=== PATIENT | female | born 1935 | race African-American/Black ===

== ENCOUNTER 2022-10-06 21:54 | Inpatient (IN) | payer OTHER ==
[2022-10-06] MEDS ORDERED: ALBUTEROL SO4 2.5/IPRATROPIUM 0.5 INH SOL 3 ML VIAL.NEB. NEB ONE (22:23)
[2022-10-06] MEDS ORDERED: methylPREDNISolone NA SUCC 125 MG/2 ML VIAL IVPB ONE (22:39)
[2022-10-06] MEDS ORDERED: methylPREDNISolone NA SUCC 125 MG/2 ML VIAL ONE (23:05)
[2022-10-06 23:17] LABS: EOS % 0.6 % (0-4.5); HEMATOCRIT 30.2 % (32.4-45.2); HEMOGLOBIN 9.1 GM/dL (10.7-15.3); LYMPH % 9.2 % (8-40); MCHC 30.1 g/dl (32.0-36.0); MEAN CELL VOLUME 64.8 fl (80-96); MEAN PLT VOLUME 8.7 fl (7.5-11.1); MONO % 9.3 % (3.8-10.2); NEUT % 80.9 % (42.8-82.8); PLATELET COUNT 359 10^3/uL (134-434); RBC 4.65 M/mm3 (3.60-5.2); RDW 21.5 % (11.6-15.6); WHITE BLOOD COUNT 4.5 K/mm3 (4.0-10.0)
[2022-10-06 23:19] LABS: MCH 19.5 pg (25.7-33.7)
[2022-10-06 23:25] LABS: INR 1.57 (0.83-1.09); PROTHROMBIN TIME (PATIENT) 18.1 SEC (9.7-13.0)
[2022-10-06 23:28] LABS: ACTIVATED PTT 38.1 SECONDS (25.2-36.5)
[2022-10-06 23:32] LABS: MAGNESIUM 2.2 mg/dL (1.8-2.4)
[2022-10-06 23:40] LABS: N-TERMINAL BNP 6872.5 pg/ml (5-450)
[2022-10-06 23:41] LABS: LACTIC ACID 3.4 mmol/L (0.4-2.0)
[2022-10-06 23:42] LABS: ANISOCYTOSIS 3+; MACROCYTOSIS 0; OVALOCYTE 1+; TARGET CELLS 1+
[2022-10-07] MEDS ORDERED: FUROSEMIDE 40 MG/4 ML INJECTABLE VIAL IVPUSH ONE
[2022-10-07] MEDS ORDERED: FUROSEMIDE 40 MG/4 ML INJECTABLE VIAL ONE (00:20)
[2022-10-07 01:01] LABS: POTASSIUM 4.2 mmol/L (3.5-5.1)
[2022-10-07 01:03] LABS: CALCIUM 8.7 mg/dL (8.5-10.1)
[2022-10-07 01:04] LABS: ALBUMIN 2.9 g/dl (3.4-5.0); BLOOD UREA NITROGEN 41.8 mg/dL (7-18)
[2022-10-07 01:08] LABS: TOT PROT 7.4 g/dl (6.4-8.2)
[2022-10-07 01:09] LABS: BILIRUBIN,TOTAL 1.4 mg/dL (0.2-1)
[2022-10-07] MEDS: FUROSEMIDE 40 MG/4 ML INJECTABLE VIAL IVPUSH SCH ×2 (05:53→13:24)
[2022-10-07] MEDS ORDERED: HEPARIN NA (PORCINE) 5,000 UNITS/ML 1ML VIAL SQ SCH ×2 (06:45→10:00)
[2022-10-07 09:12] LABS: HEMATOCRIT 31.5 % (32.4-45.2); HEMOGLOBIN 9.4 GM/dL (10.7-15.3); MCHC 29.8 g/dl (32.0-36.0); MEAN CELL VOLUME 64.1 fl (80-96); PLATELET COUNT 322 10^3/uL (134-434); RBC 4.92 M/mm3 (3.60-5.2); RDW 21.5 % (11.6-15.6)
[2022-10-07 09:17] LABS: MCH 19.1 pg (25.7-33.7); WHITE BLOOD COUNT 3.2 K/mm3 (4.0-10.0)
[2022-10-07 09:41] LABS: POTASSIUM 4.7 mmol/L (3.5-5.1)
[2022-10-07 09:43] LABS: ALBUMIN 3.2 g/dl (3.4-5.0); BLOOD UREA NITROGEN 43.2 mg/dL (7-18); CALCIUM 9.1 mg/dL (8.5-10.1); MAGNESIUM 2.2 mg/dL (1.8-2.4)
[2022-10-07 09:45] LABS: CREATININE 1.9 mg/dL (0.55-1.3)
[2022-10-07 09:46] LABS: BILIRUBIN,TOTAL 1.5 mg/dL (0.2-1); PHOSPHOROUS 5.1 mg/dL (2.5-4.9)
[2022-10-07] MEDS: APIXABAN 2.5 MG TABLET PO SCH (21:25)
[2022-10-07 22:59] LABS: ARTERIAL BLD GAS O2 SATURATION 89.8 % (95-98); ARTERIAL BLOOD GAS BASE EXCESS 0.4 mmol/L (-2-2); ARTERIAL BLOOD GAS PO2 56.7 mmHg (80-100); ARTERIAL BLOOD GAS pH 7.408 (7.350-7.450)
[2022-10-07 23:00] LABS: ALLENS TEST POSITIVE
[2022-10-08] MEDS: FUROSEMIDE 40 MG/4 ML INJECTABLE VIAL IVPUSH SCH ×2 (06:26→13:58)
[2022-10-08 07:46] LABS: HEMOGLOBIN 8.7 GM/dL (10.7-15.3); MEAN CELL VOLUME 64.1 fl (80-96); MEAN PLT VOLUME 8.6 fl (7.5-11.1); PLATELET COUNT 330 10^3/uL (134-434); RBC 4.52 M/mm3 (3.60-5.2); RDW 21.2 % (11.6-15.6)
[2022-10-08 07:52] LABS: MCH 19.2 pg (25.7-33.7)
[2022-10-08 08:22] LABS: ALBUMIN 2.8 g/dl (3.4-5.0); BLOOD UREA NITROGEN 54.1 mg/dL (7-18); MAGNESIUM 2.3 mg/dL (1.8-2.4)
[2022-10-08 08:25] LABS: PHOSPHOROUS 3.8 mg/dL (2.5-4.9)
[2022-10-08 08:27] LABS: BILIRUBIN,TOTAL 1.1 mg/dL (0.2-1); TOT PROT 7.2 g/dl (6.4-8.2)
[2022-10-08] MEDS: APIXABAN 2.5 MG TABLET PO SCH ×2 (09:35→21:44)
[2022-10-08] MEDS ORDERED: ALBUTEROL SO4 0.083% IH SOL 2.5 MG/3 ML VIAL.NEB. NEB PRN (12:31)
[2022-10-08] MEDS: BUDESONIDE/FORMETEROL FUMARATE 160/4.5 mcg INHALER IH SCH ×2 (13:54→21:45)
[2022-10-08] MEDS: ALBUTEROL SO4 2.5/IPRATROPIUM 0.5 INH SOL 3 ML VIAL.NEB. NEB SCH ×3 (14:45→20:05)
[2022-10-08] MEDS: methylPREDNISolone NA SUCC 40 MG/1 ML VIAL IVPUSH SCH (17:36)
[2022-10-09] MEDS: methylPREDNISolone NA SUCC 40 MG/1 ML VIAL IVPUSH SCH ×3 (02:00→21:28)
[2022-10-09] MEDS: FUROSEMIDE 40 MG/4 ML INJECTABLE VIAL IVPUSH SCH ×2 (06:08→13:21)
[2022-10-09] MEDS: ALBUTEROL SO4 2.5/IPRATROPIUM 0.5 INH SOL 3 ML VIAL.NEB. NEB SCH ×3 (07:45→20:30)
[2022-10-09 08:13] LABS: HEMATOCRIT 29.6 % (32.4-45.2); HEMOGLOBIN 8.7 GM/dL (10.7-15.3); MCHC 29.4 g/dl (32.0-36.0); MEAN CELL VOLUME 65.3 fl (80-96); MEAN PLT VOLUME 9.1 fl (7.5-11.1); PLATELET COUNT 364 10^3/uL (134-434); RBC 4.52 M/mm3 (3.60-5.2); RDW 21.3 % (11.6-15.6); WHITE BLOOD COUNT 4.3 K/mm3 (4.0-10.0)
[2022-10-09 08:15] LABS: MCH 19.2 pg (25.7-33.7)
[2022-10-09 08:31] LABS: POTASSIUM 5.1 mmol/L (3.5-5.1)
[2022-10-09 08:36] LABS: BLOOD UREA NITROGEN 56.4 mg/dL (7-18); MAGNESIUM 2.3 mg/dL (1.8-2.4)
[2022-10-09 08:38] LABS: PHOSPHOROUS 3.5 mg/dL (2.5-4.9)
[2022-10-09 08:39] LABS: CREATININE 1.7 mg/dL (0.55-1.3)
[2022-10-09 08:40] LABS: BILIRUBIN,TOTAL 1.1 mg/dL (0.2-1); TOT PROT 7.3 g/dl (6.4-8.2)
[2022-10-09] MEDS: APIXABAN 2.5 MG TABLET PO SCH ×2 (09:13→21:27)
[2022-10-09] MEDS: BUDESONIDE/FORMETEROL FUMARATE 160/4.5 mcg INHALER IH SCH ×2 (09:14→22:19)
[2022-10-09] MEDS ORDERED: metoPROLOL SUCCINATE 25 MG TAB.SR.24H (FP) PO ONE (12:31)
[2022-10-10] MEDS: FUROSEMIDE 40 MG/4 ML INJECTABLE VIAL IVPUSH SCH ×2 (05:28→14:08)
[2022-10-10] MEDS: ALBUTEROL SO4 2.5/IPRATROPIUM 0.5 INH SOL 3 ML VIAL.NEB. NEB SCH ×3 (08:28→20:39)
[2022-10-10] MEDS: BUDESONIDE/FORMETEROL FUMARATE 160/4.5 mcg INHALER IH SCH ×2 (09:31→21:35)
[2022-10-10] MEDS: APIXABAN 2.5 MG TABLET PO SCH ×2 (09:32→21:34)
[2022-10-10] MEDS: methylPREDNISolone NA SUCC 40 MG/1 ML VIAL IVPUSH SCH ×2 (09:32→21:34)
[2022-10-10] MEDS ORDERED: metoPROLOL SUCCINATE 25 MG TAB.SR.24H (FP) PO ONE (12:30)
[2022-10-11] MEDS: FUROSEMIDE 40 MG/4 ML INJECTABLE VIAL IVPUSH SCH ×2 (06:08→16:58)
[2022-10-11] MEDS: ALBUTEROL SO4 2.5/IPRATROPIUM 0.5 INH SOL 3 ML VIAL.NEB. NEB SCH ×3 (07:35→20:34)
[2022-10-11 09:03] LABS: POTASSIUM 4.7 mmol/L (3.5-5.1)
[2022-10-11 09:10] LABS: BLOOD UREA NITROGEN 57.7 mg/dL (7-18); CREATININE 1.7 mg/dL (0.55-1.3)
[2022-10-11 09:12] LABS: BILIRUBIN,TOTAL 0.9 mg/dL (0.2-1); TOT PROT 7.4 g/dl (6.4-8.2)
[2022-10-11 09:14] LABS: PHOSPHOROUS 3.2 mg/dL (2.5-4.9)
[2022-10-11 09:16] LABS: CALCIUM 9.2 mg/dL (8.5-10.1)
[2022-10-11 09:17] LABS: MAGNESIUM 2.3 mg/dL (1.8-2.4)
[2022-10-11 09:29] LABS: HEMATOCRIT 31.2 % (32.4-45.2); HEMOGLOBIN 9.1 GM/dL (10.7-15.3); MCHC 29.1 g/dl (32.0-36.0); MEAN CELL VOLUME 64.9 fl (80-96); PLATELET COUNT 368 10^3/uL (134-434); RDW 21.2 % (11.6-15.6); WHITE BLOOD COUNT 5.9 K/mm3 (4.0-10.0)
[2022-10-11 09:30] LABS: MCH 18.9 pg (25.7-33.7)
[2022-10-11] MEDS: methylPREDNISolone NA SUCC 40 MG/1 ML VIAL IVPUSH SCH ×2 (10:29→21:21)
[2022-10-11] MEDS: AMIODARONE HCL 200 MG TABLET PO SCH (10:29)
[2022-10-11] MEDS: APIXABAN 2.5 MG TABLET PO SCH ×2 (10:29→21:21)
[2022-10-11] MEDS: BUDESONIDE/FORMETEROL FUMARATE 160/4.5 mcg INHALER IH SCH ×2 (10:53→21:22)
[2022-10-11 11:29] LABS: ANISOCYTOSIS 1+; MACROCYTOSIS 0
[2022-10-11] MEDS ORDERED: IRON SUCROSE INJECTION 200 MG in SODIUM CHLORIDE 90 ML IVPB ONE (14:18)
[2022-10-12] MEDS: FUROSEMIDE 40 MG/4 ML INJECTABLE VIAL IVPUSH SCH ×2 (06:22→13:20)
[2022-10-12 08:12] LABS: HEMATOCRIT 30.4 % (32.4-45.2); HEMOGLOBIN 9.3 GM/dL (10.7-15.3); MCHC 30.6 g/dl (32.0-36.0); MEAN CELL VOLUME 63.3 fl (80-96); MEAN PLT VOLUME 8.4 fl (7.5-11.1); PLATELET COUNT 363 10^3/uL (134-434); RBC 4.81 M/mm3 (3.60-5.2); WHITE BLOOD COUNT 4.8 K/mm3 (4.0-10.0)
[2022-10-12 08:13] LABS: MCH 19.4 pg (25.7-33.7)
[2022-10-12] MEDS: ALBUTEROL SO4 2.5/IPRATROPIUM 0.5 INH SOL 3 ML VIAL.NEB. NEB SCH ×3 (08:22→20:48)
[2022-10-12 08:33] LABS: POTASSIUM 4.2 mmol/L (3.5-5.1)
[2022-10-12 08:37] LABS: BLOOD UREA NITROGEN 60.1 mg/dL (7-18); CALCIUM 9.2 mg/dL (8.5-10.1); MAGNESIUM 2.1 mg/dL (1.8-2.4)
[2022-10-12 08:40] LABS: PHOSPHOROUS 3.5 mg/dL (2.5-4.9)
[2022-10-12 08:41] LABS: CREATININE 1.5 mg/dL (0.55-1.3)
[2022-10-12 08:42] LABS: BILIRUBIN,TOTAL 0.9 mg/dL (0.2-1); TOT PROT 7.1 g/dl (6.4-8.2)
[2022-10-12] MEDS: PANTOPRAZOLE 40 MG TABLET PO SCH (09:43)
[2022-10-12] MEDS: methylPREDNISolone NA SUCC 40 MG/1 ML VIAL IVPUSH SCH ×2 (09:43→21:33)
[2022-10-12] MEDS: APIXABAN 2.5 MG TABLET PO SCH ×2 (09:43→21:32)
[2022-10-12] MEDS: BUDESONIDE/FORMETEROL FUMARATE 160/4.5 mcg INHALER IH SCH ×2 (09:44→21:33)
[2022-10-12] MEDS ORDERED: IRON SUCROSE INJECTION 200 MG in SODIUM CHLORIDE 90 ML IVPB ONE (10:00)
[2022-10-12] MEDS: MINERAL OIL ENEMA 133 ML ENEMA RC SCH ×2 (12:48→16:21)
[2022-10-12] MEDS: POLYETHYLENE GLYCOL (HEALTHYLAX) 3350 17 GM PACKET PO SCH ×3 (13:20→21:32)
[2022-10-13] MEDS: FUROSEMIDE 40 MG/4 ML INJECTABLE VIAL IVPUSH SCH ×2 (06:50→13:39)
[2022-10-13] MEDS: ALBUTEROL SO4 2.5/IPRATROPIUM 0.5 INH SOL 3 ML VIAL.NEB. NEB SCH ×3 (07:45→19:57)
[2022-10-13 08:16] LABS: POTASSIUM 4.3 mmol/L (3.5-5.1)
[2022-10-13 08:17] LABS: CALCIUM 9.7 mg/dL (8.5-10.1)
[2022-10-13 08:18] LABS: ALBUMIN 3.1 g/dl (3.4-5.0); BLOOD UREA NITROGEN 54.9 mg/dL (7-18); MAGNESIUM 2.3 mg/dL (1.8-2.4)
[2022-10-13 08:21] LABS: CREATININE 1.5 mg/dL (0.55-1.3); PHOSPHOROUS 3.1 mg/dL (2.5-4.9)
[2022-10-13 08:23] LABS: BILIRUBIN,TOTAL 1.1 mg/dL (0.2-1); TOT PROT 7.5 g/dl (6.4-8.2)
[2022-10-13 08:29] LABS: HEMATOCRIT 33.5 % (32.4-45.2); HEMOGLOBIN 9.9 GM/dL (10.7-15.3); MCHC 29.5 g/dl (32.0-36.0); MEAN CELL VOLUME 63.9 fl (80-96); MEAN PLT VOLUME 8.9 fl (7.5-11.1); PLATELET COUNT 398 10^3/uL (134-434); RBC 5.23 M/mm3 (3.60-5.2); RDW 21.8 % (11.6-15.6)
[2022-10-13 08:32] LABS: MCH 18.9 pg (25.7-33.7); WHITE BLOOD COUNT 6.6 K/mm3 (4.0-10.0)
[2022-10-13] MEDS: AMIODARONE HCL 200 MG TABLET PO SCH (09:39)
[2022-10-13] MEDS: methylPREDNISolone NA SUCC 40 MG/1 ML VIAL IVPUSH SCH ×2 (09:39→21:51)
[2022-10-13] MEDS: POLYETHYLENE GLYCOL (HEALTHYLAX) 3350 17 GM PACKET PO SCH ×4 (09:39→21:07)
[2022-10-13] MEDS: APIXABAN 2.5 MG TABLET PO SCH ×2 (09:39→21:06)
[2022-10-13] MEDS: PANTOPRAZOLE 40 MG TABLET PO SCH (09:39)
[2022-10-13] MEDS: BUDESONIDE/FORMETEROL FUMARATE 160/4.5 mcg INHALER IH SCH ×2 (09:40→21:50)
[2022-10-13] MEDS ORDERED: IRON SUCROSE INJECTION 200 MG in SODIUM CHLORIDE 90 ML IVPB ONE (10:00)
[2022-10-13] MEDS: DOCUSATE SODIUM 100 MG CAPSULE (FP) PO SCH (17:44)
[2022-10-14] MEDS: FUROSEMIDE 40 MG/4 ML INJECTABLE VIAL IVPUSH SCH ×2 (06:06→14:06)
[2022-10-14 08:35] LABS: INR 1.31 (0.83-1.09); PROTHROMBIN TIME (PATIENT) 15.1 SEC (9.7-13.0)
[2022-10-14 08:36] LABS: HEMATOCRIT 33.5 % (32.4-45.2); HEMOGLOBIN 9.8 GM/dL (10.7-15.3); MCHC 29.3 g/dl (32.0-36.0); MEAN CELL VOLUME 65.2 fl (80-96); MEAN PLT VOLUME 9.1 fl (7.5-11.1); PLATELET COUNT 406 10^3/uL (134-434); RBC 5.14 M/mm3 (3.60-5.2); RDW 21.7 % (11.6-15.6); WHITE BLOOD COUNT 5.3 K/mm3 (4.0-10.0)
[2022-10-14 08:37] LABS: ACTIVATED PTT 34.2 SECONDS (25.2-36.5); MCH 19.1 pg (25.7-33.7)
[2022-10-14] MEDS: ALBUTEROL SO4 2.5/IPRATROPIUM 0.5 INH SOL 3 ML VIAL.NEB. NEB SCH ×3 (08:40→20:05)
[2022-10-14 08:51] LABS: POTASSIUM 5.1 mmol/L (3.5-5.1)
[2022-10-14 08:54] LABS: MAGNESIUM 2.3 mg/dL (1.8-2.4)
[2022-10-14 08:55] LABS: BLOOD UREA NITROGEN 47.9 mg/dL (7-18)
[2022-10-14 08:57] LABS: BILIRUBIN,DIRECT 0.8 mg/dL (0.0-0.2)
[2022-10-14 08:58] LABS: CREATININE 1.4 mg/dL (0.55-1.3)
[2022-10-14 08:59] LABS: TOT PROT 6.8 g/dl (6.4-8.2)
[2022-10-14] MEDS: DOCUSATE SODIUM 100 MG CAPSULE (FP) PO SCH (09:21)
[2022-10-14] MEDS: PANTOPRAZOLE 40 MG TABLET PO SCH (09:21)
[2022-10-14] MEDS: APIXABAN 2.5 MG TABLET PO SCH ×2 (09:21→21:39)
[2022-10-14] MEDS: POLYETHYLENE GLYCOL (HEALTHYLAX) 3350 17 GM PACKET PO SCH ×5 (09:21→21:45)
[2022-10-14] MEDS: BUDESONIDE/FORMETEROL FUMARATE 160/4.5 mcg INHALER IH SCH ×2 (09:21→21:40)
[2022-10-14] MEDS: AMIODARONE HCL 200 MG TABLET PO SCH (09:21)
[2022-10-14] MEDS: methylPREDNISolone NA SUCC 40 MG/1 ML VIAL IVPUSH SCH (09:21)
[2022-10-15] MEDS: FUROSEMIDE 40 MG/4 ML INJECTABLE VIAL IVPUSH SCH ×2 (05:34→14:46)
[2022-10-15 07:55] LABS: POTASSIUM 4.2 mmol/L (3.5-5.1)
[2022-10-15 08:02] LABS: CALCIUM 9.2 mg/dL (8.5-10.1)
[2022-10-15 08:03] LABS: ALBUMIN 2.9 g/dl (3.4-5.0); BLOOD UREA NITROGEN 50.3 mg/dL (7-18); MAGNESIUM 2.2 mg/dL (1.8-2.4)
[2022-10-15 08:06] LABS: CREATININE 1.4 mg/dL (0.55-1.3); PHOSPHOROUS 2.7 mg/dL (2.5-4.9)
[2022-10-15 08:07] LABS: BILIRUBIN,TOTAL 1.1 mg/dL (0.2-1); TOT PROT 6.8 g/dl (6.4-8.2)
[2022-10-15 08:18] LABS: HEMATOCRIT 34.5 % (32.4-45.2); HEMOGLOBIN 10.3 GM/dL (10.7-15.3); MCHC 29.8 g/dl (32.0-36.0); MEAN PLT VOLUME 8.7 fl (7.5-11.1); PLATELET COUNT 381 10^3/uL (134-434); RBC 5.31 M/mm3 (3.60-5.2); RDW 21.1 % (11.6-15.6)
[2022-10-15 08:19] LABS: MCH 19.3 pg (25.7-33.7); WHITE BLOOD COUNT 6.3 K/mm3 (4.0-10.0)
[2022-10-15] MEDS: ALBUTEROL SO4 2.5/IPRATROPIUM 0.5 INH SOL 3 ML VIAL.NEB. NEB SCH ×3 (08:51→21:03)
[2022-10-15] MEDS: APIXABAN 2.5 MG TABLET PO SCH ×2 (09:37→21:11)
[2022-10-15] MEDS: predniSONE 20 MG TABLET (UD) PO SCH (09:37)
[2022-10-15] MEDS: PANTOPRAZOLE 40 MG TABLET PO SCH (09:37)
[2022-10-15] MEDS: AMIODARONE HCL 200 MG TABLET PO SCH (09:37)
[2022-10-15] MEDS: BUDESONIDE/FORMETEROL FUMARATE 160/4.5 mcg INHALER IH SCH ×2 (09:38→21:10)
[2022-10-15] MEDS: DOCUSATE SODIUM 100 MG CAPSULE (FP) PO SCH (09:38)
[2022-10-15] MEDS: POLYETHYLENE GLYCOL (HEALTHYLAX) 3350 17 GM PACKET PO SCH (09:38)
[2022-10-15 11:11] LABS: ANISOCYTOSIS 2+; MACROCYTOSIS 0; OVALOCYTE 2+; TARGET CELLS 2+
[2022-10-16] MEDS: FUROSEMIDE 40 MG/4 ML INJECTABLE VIAL IVPUSH SCH ×2 (06:40→14:33)
[2022-10-16] MEDS: ALBUTEROL SO4 2.5/IPRATROPIUM 0.5 INH SOL 3 ML VIAL.NEB. NEB SCH ×3 (07:45→20:36)
[2022-10-16 08:08] LABS: HEMOGLOBIN 10.2 GM/dL (10.7-15.3); MCHC 29.1 g/dl (32.0-36.0); MEAN CELL VOLUME 66.7 fl (80-96); MEAN PLT VOLUME 9.7 fl (7.5-11.1); PLATELET COUNT 390 10^3/uL (134-434); RBC 5.25 M/mm3 (3.60-5.2); RDW 21.2 % (11.6-15.6); WHITE BLOOD COUNT 6.9 K/mm3 (4.0-10.0)
[2022-10-16 08:12] LABS: MCH 19.4 pg (25.7-33.7)
[2022-10-16 08:30] LABS: POTASSIUM 4.5 mmol/L (3.5-5.1)
[2022-10-16 08:47] LABS: CALCIUM 9.4 mg/dL (8.5-10.1)
[2022-10-16 08:49] LABS: ALBUMIN 2.8 g/dl (3.4-5.0)
[2022-10-16 08:50] LABS: BLOOD UREA NITROGEN 49.8 mg/dL (7-18); MAGNESIUM 2.1 mg/dL (1.8-2.4)
[2022-10-16 08:52] LABS: CREATININE 1.5 mg/dL (0.55-1.3); PHOSPHOROUS 2.8 mg/dL (2.5-4.9)
[2022-10-16 08:54] LABS: BILIRUBIN,TOTAL 1.2 mg/dL (0.2-1); TOT PROT 6.7 g/dl (6.4-8.2)
[2022-10-16] MEDS ORDERED: amLODIPine BESYLATE 5 MG TABLET (FP) PO SCH (10:00)
[2022-10-16] MEDS: predniSONE 20 MG TABLET (UD) PO SCH (10:22)
[2022-10-16] MEDS: DOCUSATE SODIUM 100 MG CAPSULE (FP) PO SCH (10:22)
[2022-10-16] MEDS: AMIODARONE HCL 200 MG TABLET PO SCH (10:22)
[2022-10-16] MEDS: APIXABAN 2.5 MG TABLET PO SCH ×2 (10:22→21:56)
[2022-10-16] MEDS: PANTOPRAZOLE 40 MG TABLET PO SCH (10:22)
[2022-10-16] MEDS: BUDESONIDE/FORMETEROL FUMARATE 160/4.5 mcg INHALER IH SCH ×2 (10:23→21:56)
[2022-10-17] MEDS: FUROSEMIDE 40 MG/4 ML INJECTABLE VIAL IVPUSH SCH (06:21)
[2022-10-17] MEDS: ALBUTEROL SO4 2.5/IPRATROPIUM 0.5 INH SOL 3 ML VIAL.NEB. NEB SCH (08:00)
[2022-10-17] MEDS: AMIODARONE HCL 200 MG TABLET PO SCH (10:21)
[2022-10-17] MEDS: predniSONE 20 MG TABLET (UD) PO SCH (10:21)
[2022-10-17] MEDS: APIXABAN 2.5 MG TABLET PO SCH ×2 (10:21→21:30)
[2022-10-17] MEDS: DOCUSATE SODIUM 100 MG CAPSULE (FP) PO SCH (10:21)
[2022-10-17] MEDS: PANTOPRAZOLE 40 MG TABLET PO SCH (10:21)
[2022-10-17] MEDS: BUDESONIDE/FORMETEROL FUMARATE 160/4.5 mcg INHALER IH SCH ×2 (10:22→21:31)
[2022-10-17 10:36] LABS: MCHC 29.3 g/dl (32.0-36.0); MEAN CELL VOLUME 67.1 fl (80-96); MEAN PLT VOLUME 9.3 fl (7.5-11.1); PLATELET COUNT 365 10^3/uL (134-434); RBC 5.07 M/mm3 (3.60-5.2); RDW 21.7 % (11.6-15.6); WHITE BLOOD COUNT 6.9 K/mm3 (4.0-10.0)
[2022-10-17 10:42] LABS: POTASSIUM 3.6 mmol/L (3.5-5.1)
[2022-10-17 10:44] LABS: MCH 19.7 pg (25.7-33.7)
[2022-10-17 10:45] LABS: ALBUMIN 2.8 g/dl (3.4-5.0); BLOOD UREA NITROGEN 35.4 mg/dL (7-18)
[2022-10-17 10:48] LABS: CREATININE 1.4 mg/dL (0.55-1.3); PHOSPHOROUS 1.9 mg/dL (2.5-4.9)
[2022-10-17 10:50] LABS: BILIRUBIN,TOTAL 1.1 mg/dL (0.2-1); TOT PROT 6.4 g/dl (6.4-8.2)
[2022-10-17] MEDS ORDERED: FUROSEMIDE 40 MG/4 ML INJECTABLE VIAL IVPUSH SCH (11:04)
[2022-10-17] MEDS: FUROSEMIDE 100 MG/10 ML INJECTABLE VIAL IVPUSH SCH (13:56)
[2022-10-18] MEDS: FUROSEMIDE 100 MG/10 ML INJECTABLE VIAL IVPUSH SCH ×2 (05:55→14:13)
[2022-10-18 07:47] LABS: HEMATOCRIT 32.1 % (32.4-45.2); HEMOGLOBIN 9.6 GM/dL (10.7-15.3); MCHC 29.9 g/dl (32.0-36.0); MEAN CELL VOLUME 66.6 fl (80-96); PLATELET COUNT 324 10^3/uL (134-434); RBC 4.82 M/mm3 (3.60-5.2); RDW 21.8 % (11.6-15.6); WHITE BLOOD COUNT 5.7 K/mm3 (4.0-10.0)
[2022-10-18 07:53] LABS: MCH 19.9 pg (25.7-33.7)
[2022-10-18 07:54] LABS: ADD RBC MORPHOLOGY YES
[2022-10-18 08:31] LABS: POTASSIUM 3.5 mmol/L (3.5-5.1)
[2022-10-18 08:34] LABS: CALCIUM 8.3 mg/dL (8.5-10.1); MAGNESIUM 1.9 mg/dL (1.8-2.4)
[2022-10-18 08:37] LABS: CREATININE 1.2 mg/dL (0.55-1.3)
[2022-10-18 08:56] LABS: ANISOCYTOSIS 3+; MACROCYTOSIS 0
[2022-10-18] MEDS: predniSONE 20 MG TABLET (UD) PO SCH (09:20)
[2022-10-18] MEDS: AMIODARONE HCL 200 MG TABLET PO SCH (09:21)
[2022-10-18] MEDS: PANTOPRAZOLE 40 MG TABLET PO SCH (09:21)
[2022-10-18] MEDS: DOCUSATE SODIUM 100 MG CAPSULE (FP) PO SCH (09:21)
[2022-10-18] MEDS: APIXABAN 2.5 MG TABLET PO SCH ×2 (09:21→22:35)
[2022-10-18] MEDS: BUDESONIDE/FORMETEROL FUMARATE 160/4.5 mcg INHALER IH SCH ×2 (09:28→22:35)
[2022-10-19] MEDS: FUROSEMIDE 100 MG/10 ML INJECTABLE VIAL IVPUSH SCH ×2 (05:14→13:51)
[2022-10-19 08:24] LABS: HEMATOCRIT 35.1 % (32.4-45.2); HEMOGLOBIN 10.4 GM/dL (10.7-15.3); MCHC 29.6 g/dl (32.0-36.0); MEAN CELL VOLUME 66.5 fl (80-96); MEAN PLT VOLUME 8.6 fl (7.5-11.1); PLATELET COUNT 298 10^3/uL (134-434); RBC 5.28 M/mm3 (3.60-5.2); RDW 21.6 % (11.6-15.6); WHITE BLOOD COUNT 6.5 K/mm3 (4.0-10.0)
[2022-10-19 08:25] LABS: MCH 19.7 pg (25.7-33.7)
[2022-10-19 08:38] LABS: CALCIUM 9.1 mg/dL (8.5-10.1)
[2022-10-19 08:39] LABS: ALBUMIN 2.8 g/dl (3.4-5.0); BLOOD UREA NITROGEN 43.2 mg/dL (7-18); MAGNESIUM 1.9 mg/dL (1.8-2.4)
[2022-10-19 08:41] LABS: CREATININE 1.3 mg/dL (0.55-1.3)
[2022-10-19 08:42] LABS: PHOSPHOROUS 2.6 mg/dL (2.5-4.9)
[2022-10-19 08:43] LABS: BILIRUBIN,TOTAL 1.1 mg/dL (0.2-1); TOT PROT 6.5 g/dl (6.4-8.2)
[2022-10-19] MEDS: DOCUSATE SODIUM 100 MG CAPSULE (FP) PO SCH (10:01)
[2022-10-19] MEDS: APIXABAN 2.5 MG TABLET PO SCH ×2 (10:02→21:27)
[2022-10-19] MEDS: PANTOPRAZOLE 40 MG TABLET PO SCH (10:02)
[2022-10-19] MEDS: BUDESONIDE/FORMETEROL FUMARATE 160/4.5 mcg INHALER IH SCH ×2 (10:02→21:27)
[2022-10-19] MEDS: AMIODARONE HCL 200 MG TABLET PO SCH (10:02)
[2022-10-19] MEDS: predniSONE 20 MG TABLET (UD) PO SCH (10:02)
[2022-10-19] MEDS ORDERED: ARTIFICIAL TEARS (POLYVINYL ALCOHOL) OPTH DROPS OU ONE (16:50)
[2022-10-20] MEDS: FUROSEMIDE 100 MG/10 ML INJECTABLE VIAL IVPUSH SCH ×2 (06:55→14:52)
[2022-10-20 08:43] LABS: HEMATOCRIT 36.9 % (32.4-45.2); HEMOGLOBIN 10.7 GM/dL (10.7-15.3); MEAN CELL VOLUME 68.1 fl (80-96); MEAN PLT VOLUME 10.1 fl (7.5-11.1); PLATELET COUNT 313 10^3/uL (134-434); RBC 5.42 M/mm3 (3.60-5.2); RDW 21.6 % (11.6-15.6); WHITE BLOOD COUNT 5.8 K/mm3 (4.0-10.0)
[2022-10-20 08:45] LABS: MCH 19.7 pg (25.7-33.7)
[2022-10-20] MEDS: DOCUSATE SODIUM 100 MG CAPSULE (FP) PO SCH (09:19)
[2022-10-20] MEDS: predniSONE 20 MG TABLET (UD) PO SCH (09:19)
[2022-10-20] MEDS: APIXABAN 2.5 MG TABLET PO SCH ×2 (09:19→21:25)
[2022-10-20] MEDS: PANTOPRAZOLE 40 MG TABLET PO SCH (09:19)
[2022-10-20] MEDS: AMIODARONE HCL 200 MG TABLET PO SCH (09:19)
[2022-10-20] MEDS: BUDESONIDE/FORMETEROL FUMARATE 160/4.5 mcg INHALER IH SCH ×2 (09:23→21:24)
[2022-10-20 12:18] LABS: POTASSIUM 3.7 mmol/L (3.5-5.1)
[2022-10-20 13:13] LABS: ALBUMIN 2.8 g/dl (3.4-5.0); BLOOD UREA NITROGEN 39.2 mg/dL (7-18); CALCIUM 8.7 mg/dL (8.5-10.1)
[2022-10-20 13:16] LABS: CREATININE 1.2 mg/dL (0.55-1.3); PHOSPHOROUS 2.6 mg/dL (2.5-4.9); TOT PROT 6.4 g/dl (6.4-8.2)
[2022-10-20 13:17] LABS: BILIRUBIN,TOTAL 1.1 mg/dL (0.2-1)
[2022-10-20 20:33] VITALS: BMI 24.5
[2022-10-21] MEDS: FUROSEMIDE 100 MG/10 ML INJECTABLE VIAL IVPUSH SCH (05:01)
[2022-10-21 05:24] VITALS: RESP 16
[2022-10-21 08:09] LABS: POTASSIUM 3.4 mmol/L (3.5-5.1)
[2022-10-21 08:29] LABS: ALBUMIN 2.8 g/dl (3.4-5.0); HEMATOCRIT 34.5 % (32.4-45.2); MAGNESIUM 1.9 mg/dL (1.8-2.4); MCHC 29.1 g/dl (32.0-36.0); MEAN CELL VOLUME 68.5 fl (80-96); MEAN PLT VOLUME 9.4 fl (7.5-11.1); PLATELET COUNT 260 10^3/uL (134-434); RBC 5.03 M/mm3 (3.60-5.2); RDW 21.8 % (11.6-15.6); WHITE BLOOD COUNT 6.5 K/mm3 (4.0-10.0)
[2022-10-21 08:31] LABS: CREATININE 1.3 mg/dL (0.55-1.3); PHOSPHOROUS 2.2 mg/dL (2.5-4.9)
[2022-10-21 08:33] LABS: BILIRUBIN,TOTAL 1.2 mg/dL (0.2-1)
[2022-10-21 08:34] LABS: TOT PROT 6.4 g/dl (6.4-8.2)
[2022-10-21] MEDS ORDERED: POTASSIUM CHLORIDE ORAL LIQUID 20 MEQ/15 ML PO ONE (09:11)
[2022-10-21] MEDS: PANTOPRAZOLE 40 MG TABLET PO SCH (10:07)
[2022-10-21] MEDS: AMIODARONE HCL 200 MG TABLET PO SCH (10:07)
[2022-10-21] MEDS: APIXABAN 2.5 MG TABLET PO SCH (10:07)
[2022-10-21] MEDS: DOCUSATE SODIUM 100 MG CAPSULE (FP) PO SCH (10:07)
[2022-10-21] MEDS: BUDESONIDE/FORMETEROL FUMARATE 160/4.5 mcg INHALER IH SCH (10:08)
[2022-10-21 10:17] VITALS: BP 134/85; PULSE 71; TEMP 98.3
[2022-10-21] MEDS ORDERED: predniSONE 10 MG TABLET (UD) PO ONE (17:34)
== END 2022-10-21 13:30 | disposition home or self-care (01) | DRG 291 ==
LOC: JER 21:54 → JERBED 22:39 → J4W 10-07 06:12
PROVIDERS: ADMIT Internal Medicine; ATTEND Internal Medicine
DX: I13.0 Hypertensive heart and chronic kidney disease with heart failure and stage 1 through stage 4 chronic kidney disease, or unspecified chronic kidney disease (principal); I50.33 Acute on chronic diastolic (congestive) heart failure; J96.01 Acute respiratory failure with hypoxia; J44.1 Chronic obstructive pulmonary disease with (acute) exacerbation; N17.9 Acute kidney failure, unspecified; I31.39 Other pericardial effusion (noninflammatory); R18.8 Other ascites; I48.91 Unspecified atrial fibrillation; I10 Essential (primary) hypertension; E78.5 Hyperlipidemia, unspecified; I45.10 Unspecified right bundle-branch block; I07.1 Rheumatic tricuspid insufficiency; R94.5 Abnormal results of liver function studies; I27.20 Pulmonary hypertension, unspecified; N18.9 Chronic kidney disease, unspecified; N63.0 Unspecified lump in unspecified breast; K76.9 Liver disease, unspecified; K59.00 Constipation, unspecified; D50.9 Iron deficiency anemia, unspecified; Z95.0 Presence of cardiac pacemaker
CPT/HCPCS: 0241U-QW; 36415; 36600; 71045-TC-FY; 71250-TC; 76700-TC; 76705-TC; 80048; 80053; 80076; 82550; 82728; 82803; 82962; 82977; 83516; 83540; 83550; 83605; 83735; 83880; 84100; 84484; 85025; 85027; 85045; 85610; 85730; 86038; 86704; 86709; 86803; 87040; 93005; 93010; 93306-TC; 94010; 94640; 94761; 97116-GP; 97162-GP; 99285-25; J1644; J1756

== ENCOUNTER 2023-03-03 11:19 | Inpatient (IN) | payer OTHER ==
[2023-03-03] MEDS ORDERED: methylPREDNISolone NA SUCC 125 MG/2 ML VIAL IVPUSH ONE (13:07)
[2023-03-03] MEDS ORDERED: MAGNESIUM SULF 50% (8.12 MEQ/2 ML-1 GM VIAL) IVPB ONE (13:07)
[2023-03-03] MEDS ORDERED: methylPREDNISolone NA SUCC 125 MG/2 ML VIAL ONE (13:26)
[2023-03-03] MEDS: ALBUTEROL SO4 2.5/IPRATROPIUM 0.5 INH SOL 3 ML VIAL.NEB. NEB SCH ×3 (13:37→14:02)
[2023-03-03 13:42] LABS: BASO % 1.2 % (0-2.0); HEMOGLOBIN 11.5 GM/dL (10.7-15.3); LYMPH % 19.8 % (8-40); MCH 22.5 pg (25.7-33.7); MCHC 30.2 g/dl (32.0-36.0); MEAN CELL VOLUME 74.5 fl (80-96); MEAN PLT VOLUME 8.3 fl (7.5-11.1); MONO % 16.5 % (3.8-10.2); NEUT % 60.5 % (42.8-82.8); PLATELET COUNT 289 10^3/uL (134-434); RDW 19.1 % (11.6-15.6)
[2023-03-03] MEDS ORDERED: MAGNESIUM SULF 50% (8.12 MEQ/2 ML-1 GM VIAL) ONE (13:43)
[2023-03-03 13:49] LABS: POTASSIUM 4.4 mmol/L (3.5-5.1)
[2023-03-03 13:51] LABS: BLOOD UREA NITROGEN 18.4 mg/dL (7-18); CALCIUM 9.3 mg/dL (8.5-10.1)
[2023-03-03 13:52] LABS: ALBUMIN 3.2 g/dl (3.4-5.0)
[2023-03-03 13:56] LABS: BILIRUBIN,TOTAL 1.5 mg/dL (0.2-1); TOT PROT 7.6 g/dl (6.4-8.2)
[2023-03-03 14:23] LABS: INR 1.49 (0.83-1.09); PROTHROMBIN TIME (PATIENT) 17.2 SEC (9.7-13.0)
[2023-03-03 14:26] LABS: ACTIVATED PTT 37.7 SECONDS (25.2-36.5)
[2023-03-03 14:56] LABS: POTASSIUM 3.8 mmol/L (3.5-5.1)
[2023-03-03 14:59] LABS: CALCIUM 9.4 mg/dL (8.5-10.1); MAGNESIUM 2.7 mg/dL (1.8-2.4)
[2023-03-03 15:03] LABS: CREATININE 1.1 mg/dL (0.55-1.3)
[2023-03-03 15:12] LABS: EPI CELLS 12 /uL (0-25.1); HYALINE CASTS 1 /uL (0-3.1); PH,URINE 5.5 (5.0-8.0); URINE APPEARANCE CLEAR; URINE BACTERIA 35 /uL (0-1359); URINE BILIRUBIN NEGATIVE (NEGATIVE); URINE COLOR YELLOW; URINE GLUCOSE (UA) NEGATIVE (NEGATIVE); URINE KETONE NEGATIVE (NEGATIVE); URINE LEUK ESTERASE NEGATIVE (NEGATIVE); URINE NITRITE NEGATIVE (NEGATIVE); URINE PROTEIN 2+ (NEGATIVE); URINE RBC 10 /uL (0-23.9); URINE WBC 8 /uL (0-25.8)
[2023-03-03 15:38] LABS: BILIRUBIN,DIRECT 0.8 mg/dL (0.0-0.2)
[2023-03-03] MEDS ORDERED: FUROSEMIDE 40 MG/4 ML INJECTABLE VIAL IVPUSH ONE (17:45)
[2023-03-03] MEDS ORDERED: FUROSEMIDE 40 MG/4 ML INJECTABLE VIAL ONE (18:42)
[2023-03-03] MEDS ORDERED: APIXABAN 2.5 MG TABLET ONE (22:13)
[2023-03-03] MEDS ORDERED: METOPROLOL TARTRATE 50 MG TABLET (FP) ONE (22:13)
[2023-03-03] MEDS: APIXABAN 2.5 MG TABLET PO SCH (22:17)
[2023-03-03] MEDS: METOPROLOL TARTRATE 50 MG TABLET (FP) PO SCH (22:18)
[2023-03-03] MEDS: BUDESONIDE/FORMETEROL FUMARATE 160/4.5 mcg INHALER IH SCH (22:51)
[2023-03-04] MEDS ORDERED: FUROSEMIDE 20 MG TABLET (FP) PO SCH (06:00)
[2023-03-04] MEDS ORDERED: FUROSEMIDE 20 MG TABLET (FP) ONE (06:30)
[2023-03-04] MEDS ORDERED: FUROSEMIDE 40 MG TABLET (FP) ONE (06:30)
[2023-03-04] MEDS ORDERED: LEVOTHYROXINE NA 25 MCG TABLET (FP) ONE (06:30)
[2023-03-04] MEDS: LEVOTHYROXINE NA 25 MCG TABLET (FP) PO SCH (06:40)
[2023-03-04 07:44] LABS: BASO % 0.1 % (0-2.0); EOS % 0.2 % (0-4.5); HEMATOCRIT 35.4 % (32.4-45.2); HEMOGLOBIN 10.7 GM/dL (10.7-15.3); LYMPH % 21.4 % (8-40); MCH 22.3 pg (25.7-33.7); MCHC 30.3 g/dl (32.0-36.0); MEAN CELL VOLUME 73.6 fl (80-96); MEAN PLT VOLUME 8.6 fl (7.5-11.1); MONO % 11.8 % (3.8-10.2); NEUT % 66.5 % (42.8-82.8); PLATELET COUNT 279 10^3/uL (134-434); RDW 18.7 % (11.6-15.6); WHITE BLOOD COUNT 2.9 K/mm3 (4.0-10.0)
[2023-03-04 07:51] LABS: POTASSIUM 4.6 mmol/L (3.5-5.1)
[2023-03-04 07:55] LABS: CALCIUM 9.2 mg/dL (8.5-10.1)
[2023-03-04 07:56] LABS: ALBUMIN 2.9 g/dl (3.4-5.0); BLOOD UREA NITROGEN 18.8 mg/dL (7-18); MAGNESIUM 2.1 mg/dL (1.8-2.4)
[2023-03-04 07:59] LABS: CREATININE 1.1 mg/dL (0.55-1.3); PHOSPHOROUS 3.7 mg/dL (2.5-4.9)
[2023-03-04 08:01] LABS: BILIRUBIN,TOTAL 1.2 mg/dL (0.2-1); TOT PROT 7.2 g/dl (6.4-8.2)
[2023-03-04] MEDS: CITALOPRAM HYDROBROMIDE 20 MG TABLET PO SCH (09:10)
[2023-03-04] MEDS: METOPROLOL TARTRATE 50 MG TABLET (FP) PO SCH ×2 (09:10→21:51)
[2023-03-04] MEDS: PANTOPRAZOLE 40 MG TABLET PO SCH (09:10)
[2023-03-04] MEDS: SPIRONOLACTONE 25 MG TABLET PO SCH (09:10)
[2023-03-04] MEDS: AMIODARONE HCL 200 MG TABLET PO SCH (09:10)
[2023-03-04] MEDS: APIXABAN 2.5 MG TABLET PO SCH ×2 (09:10→21:51)
[2023-03-04] MEDS ORDERED: methylPREDNISolone NA SUCC 40 MG/1 ML VIAL IVPUSH SCH (10:00)
[2023-03-04] MEDS: BUDESONIDE/FORMETEROL FUMARATE 160/4.5 mcg INHALER IH SCH ×2 (12:44→22:02)
[2023-03-04] MEDS ORDERED: SENNOSIDES/DOCUSATE COMBO (SENNA PLUS) TABLET (UD) PO PRN (16:19)
[2023-03-04 18:43] VITALS: BMI 22.8
[2023-03-04] MEDS: ALBUTEROL SO4 2.5/IPRATROPIUM 0.5 INH SOL 3 ML VIAL.NEB. NEB SCH (20:54)
[2023-03-04] MEDS: POLYETHYLENE GLYCOL (HEALTHYLAX) 3350 17 GM PACKET PO SCH (22:01)
[2023-03-04] MEDS ORDERED: FUROSEMIDE 40 MG/4 ML INJECTABLE VIAL IVPUSH ONE (23:45)
[2023-03-04] MEDS: FUROSEMIDE 40 MG/4 ML INJECTABLE VIAL IVPUSH SCH (23:50)
[2023-03-05] MEDS: FUROSEMIDE 40 MG/4 ML INJECTABLE VIAL IVPUSH SCH ×2 (05:58→15:56)
[2023-03-05] MEDS: LEVOTHYROXINE NA 25 MCG TABLET (FP) PO SCH (06:42)
[2023-03-05 07:17] LABS: HEMATOCRIT 34.7 % (32.4-45.2); HEMOGLOBIN 10.6 GM/dL (10.7-15.3); MCH 22.3 pg (25.7-33.7); MCHC 30.5 g/dl (32.0-36.0); MEAN CELL VOLUME 73.2 fl (80-96); MEAN PLT VOLUME 8.6 fl (7.5-11.1); PLATELET COUNT 296 10^3/uL (134-434); RBC 4.74 M/mm3 (3.60-5.2); RDW 19.1 % (11.6-15.6); WHITE BLOOD COUNT 5.1 K/mm3 (4.0-10.0)
[2023-03-05] MEDS: ALBUTEROL SO4 2.5/IPRATROPIUM 0.5 INH SOL 3 ML VIAL.NEB. NEB SCH ×4 (07:35→20:33)
[2023-03-05 07:49] LABS: POTASSIUM 3.9 mmol/L (3.5-5.1)
[2023-03-05 07:57] LABS: ALBUMIN 3.1 g/dl (3.4-5.0); BLOOD UREA NITROGEN 28.1 mg/dL (7-18); CALCIUM 9.7 mg/dL (8.5-10.1); MAGNESIUM 2.1 mg/dL (1.8-2.4)
[2023-03-05 08:00] LABS: PHOSPHOROUS 3.7 mg/dL (2.5-4.9)
[2023-03-05 08:02] LABS: BILIRUBIN,TOTAL 1.1 mg/dL (0.2-1); TOT PROT 7.1 g/dl (6.4-8.2)
[2023-03-05] MEDS ORDERED: predniSONE 20 MG TABLET (UD) PO SCH (10:00)
[2023-03-05] MEDS: POLYETHYLENE GLYCOL (HEALTHYLAX) 3350 17 GM PACKET PO SCH ×2 (11:28→21:22)
[2023-03-05] MEDS: methylPREDNISolone NA SUCC 40 MG/1 ML VIAL IVPUSH SCH (11:28)
[2023-03-05] MEDS: ALBUTEROL SO4 HFA INHALER IH PRN (11:28)
[2023-03-05] MEDS: APIXABAN 2.5 MG TABLET PO SCH ×2 (11:29→21:22)
[2023-03-05] MEDS: AMIODARONE HCL 200 MG TABLET PO SCH (11:29)
[2023-03-05] MEDS: PANTOPRAZOLE 40 MG TABLET PO SCH (11:29)
[2023-03-05] MEDS: CITALOPRAM HYDROBROMIDE 20 MG TABLET PO SCH (11:29)
[2023-03-05] MEDS: METOPROLOL TARTRATE 50 MG TABLET (FP) PO SCH ×2 (11:29→21:22)
[2023-03-05] MEDS: SPIRONOLACTONE 25 MG TABLET PO SCH (11:29)
[2023-03-05] MEDS: BUDESONIDE/FORMETEROL FUMARATE 160/4.5 mcg INHALER IH SCH ×2 (11:30→21:23)
[2023-03-05] MEDS ORDERED: methylPREDNISolone NA SUCC 40 MG/1 ML VIAL IVPUSH ONE (16:20)
[2023-03-06] MEDS: LEVOTHYROXINE NA 25 MCG TABLET (FP) PO SCH (06:44)
[2023-03-06] MEDS: FUROSEMIDE 40 MG/4 ML INJECTABLE VIAL IVPUSH SCH ×2 (06:44→15:07)
[2023-03-06] MEDS: ALBUTEROL SO4 2.5/IPRATROPIUM 0.5 INH SOL 3 ML VIAL.NEB. NEB SCH ×3 (07:30→15:16)
[2023-03-06 07:34] LABS: HEMATOCRIT 36.7 % (32.4-45.2); HEMOGLOBIN 11.4 GM/dL (10.7-15.3); MCH 22.9 pg (25.7-33.7); MCHC 31.1 g/dl (32.0-36.0); MEAN CELL VOLUME 73.8 fl (80-96); MEAN PLT VOLUME 8.4 fl (7.5-11.1); PLATELET COUNT 283 10^3/uL (134-434); RBC 4.97 M/mm3 (3.60-5.2); RDW 18.7 % (11.6-15.6); WHITE BLOOD COUNT 8.7 K/mm3 (4.0-10.0)
[2023-03-06 07:44] LABS: POTASSIUM 3.8 mmol/L (3.5-5.1)
[2023-03-06 07:46] LABS: ALBUMIN 3.3 g/dl (3.4-5.0); BLOOD UREA NITROGEN 30.9 mg/dL (7-18)
[2023-03-06 07:49] LABS: CREATININE 1.1 mg/dL (0.55-1.3)
[2023-03-06 07:51] LABS: BILIRUBIN,TOTAL 1.4 mg/dL (0.2-1); TOT PROT 7.7 g/dl (6.4-8.2)
[2023-03-06 07:53] LABS: CALCIUM 10.2 mg/dL (8.5-10.1)
[2023-03-06] MEDS: PANTOPRAZOLE 40 MG TABLET PO SCH (10:02)
[2023-03-06] MEDS: APIXABAN 2.5 MG TABLET PO SCH ×2 (10:02→21:49)
[2023-03-06] MEDS: POLYETHYLENE GLYCOL (HEALTHYLAX) 3350 17 GM PACKET PO SCH ×2 (10:02→21:53)
[2023-03-06] MEDS: CITALOPRAM HYDROBROMIDE 20 MG TABLET PO SCH (10:02)
[2023-03-06] MEDS: SPIRONOLACTONE 25 MG TABLET PO SCH (10:03)
[2023-03-06] MEDS: AMIODARONE HCL 200 MG TABLET PO SCH (10:03)
[2023-03-06] MEDS: METOPROLOL TARTRATE 50 MG TABLET (FP) PO SCH (10:04)
[2023-03-06] MEDS: BUDESONIDE/FORMETEROL FUMARATE 160/4.5 mcg INHALER IH SCH ×2 (10:05→21:49)
[2023-03-06] MEDS: methylPREDNISolone NA SUCC 40 MG/1 ML VIAL IVPUSH SCH (10:32)
[2023-03-06] MEDS: IPRATROPIUM BR 0.02% 0.5 MG/2.5 ML VIAL.NEB. NEB SCH ×2 (15:55→21:24)
[2023-03-06] MEDS: METOPROLOL TARTRATE 25 MG TABLET (FP) PO SCH ×2 (17:34→21:49)
[2023-03-07] MEDS: FUROSEMIDE 40 MG/4 ML INJECTABLE VIAL IVPUSH SCH ×2 (06:32→14:22)
[2023-03-07] MEDS: LEVOTHYROXINE NA 25 MCG TABLET (FP) PO SCH (06:32)
[2023-03-07] MEDS: METOPROLOL TARTRATE 25 MG TABLET (FP) PO SCH (06:32)
[2023-03-07] MEDS: IPRATROPIUM BR 0.02% 0.5 MG/2.5 ML VIAL.NEB. NEB SCH ×4 (07:15→21:31)
[2023-03-07 07:40] LABS: HEMATOCRIT 37.4 % (32.4-45.2); HEMOGLOBIN 11.4 GM/dL (10.7-15.3); MCH 22.6 pg (25.7-33.7); MCHC 30.5 g/dl (32.0-36.0); MEAN CELL VOLUME 74.1 fl (80-96); MEAN PLT VOLUME 8.4 fl (7.5-11.1); PLATELET COUNT 276 10^3/uL (134-434); RBC 5.04 M/mm3 (3.60-5.2); RDW 18.8 % (11.6-15.6); WHITE BLOOD COUNT 7.7 K/mm3 (4.0-10.0)
[2023-03-07 07:58] LABS: POTASSIUM 4.1 mmol/L (3.5-5.1)
[2023-03-07 08:00] LABS: CALCIUM 9.3 mg/dL (8.5-10.1)
[2023-03-07 08:01] LABS: BLOOD UREA NITROGEN 35.9 mg/dL (7-18); MAGNESIUM 1.8 mg/dL (1.8-2.4)
[2023-03-07 08:04] LABS: CREATININE 1.2 mg/dL (0.55-1.3); PHOSPHOROUS 3.2 mg/dL (2.5-4.9)
[2023-03-07] MEDS: BUDESONIDE/FORMETEROL FUMARATE 160/4.5 mcg INHALER IH SCH ×2 (10:45→21:23)
[2023-03-07] MEDS: PANTOPRAZOLE 40 MG TABLET PO SCH (10:59)
[2023-03-07] MEDS: CITALOPRAM HYDROBROMIDE 20 MG TABLET PO SCH (10:59)
[2023-03-07] MEDS: SPIRONOLACTONE 25 MG TABLET PO SCH (10:59)
[2023-03-07] MEDS: APIXABAN 2.5 MG TABLET PO SCH ×2 (10:59→21:22)
[2023-03-07] MEDS: POLYETHYLENE GLYCOL (HEALTHYLAX) 3350 17 GM PACKET PO SCH ×2 (10:59→21:22)
[2023-03-07] MEDS: predniSONE 20 MG TABLET (UD) PO SCH (10:59)
[2023-03-07] MEDS: AMIODARONE HCL 200 MG TABLET PO SCH (10:59)
[2023-03-07] MEDS: METOPROLOL TARTRATE 50 MG TABLET (FP) PO SCH ×2 (14:25→21:22)
[2023-03-08] MEDS: METOPROLOL TARTRATE 50 MG TABLET (FP) PO SCH ×3 (05:34→21:23)
[2023-03-08] MEDS: FUROSEMIDE 40 MG/4 ML INJECTABLE VIAL IVPUSH SCH ×2 (05:34→15:00)
[2023-03-08] MEDS: LEVOTHYROXINE NA 25 MCG TABLET (FP) PO SCH (06:23)
[2023-03-08] MEDS ORDERED: BISMUTH SUBSALICYLATE 524 MG/30 ML PO ONE (06:39)
[2023-03-08] MEDS ORDERED: BISMUTH SUBSALICYLATE 262 MG/15 ML BTL PO ONE (06:39)
[2023-03-08 07:50] LABS: POTASSIUM 3.8 mmol/L (3.5-5.1)
[2023-03-08 08:13] LABS: HEMATOCRIT 37.4 % (32.4-45.2); HEMOGLOBIN 11.3 GM/dL (10.7-15.3); MCH 22.2 pg (25.7-33.7); MCHC 30.2 g/dl (32.0-36.0); MEAN CELL VOLUME 73.6 fl (80-96); MEAN PLT VOLUME 8.7 fl (7.5-11.1); PLATELET COUNT 264 10^3/uL (134-434); RBC 5.08 M/mm3 (3.60-5.2); RDW 18.8 % (11.6-15.6); WHITE BLOOD COUNT 6.4 K/mm3 (4.0-10.0)
[2023-03-08 08:14] LABS: CALCIUM 9.3 mg/dL (8.5-10.1)
[2023-03-08 08:15] LABS: BLOOD UREA NITROGEN 37.9 mg/dL (7-18)
[2023-03-08 08:18] LABS: CREATININE 1.1 mg/dL (0.55-1.3)
[2023-03-08] MEDS: IPRATROPIUM BR 0.02% 0.5 MG/2.5 ML VIAL.NEB. NEB SCH ×4 (08:20→21:16)
[2023-03-08] MEDS: AMIODARONE HCL 200 MG TABLET PO SCH (10:02)
[2023-03-08] MEDS: CITALOPRAM HYDROBROMIDE 20 MG TABLET PO SCH (10:02)
[2023-03-08] MEDS: PANTOPRAZOLE 40 MG TABLET PO SCH (10:02)
[2023-03-08] MEDS: SPIRONOLACTONE 25 MG TABLET PO SCH (10:03)
[2023-03-08] MEDS: APIXABAN 2.5 MG TABLET PO SCH ×2 (10:03→21:23)
[2023-03-08] MEDS: BUDESONIDE/FORMETEROL FUMARATE 160/4.5 mcg INHALER IH SCH ×2 (10:03→21:23)
[2023-03-08] MEDS: POLYETHYLENE GLYCOL (HEALTHYLAX) 3350 17 GM PACKET PO SCH ×2 (10:04→21:23)
[2023-03-08] MEDS: predniSONE 20 MG TABLET (UD) PO SCH (10:06)
[2023-03-09] MEDS: METOPROLOL TARTRATE 50 MG TABLET (FP) PO SCH ×3 (07:07→22:04)
[2023-03-09] MEDS: LEVOTHYROXINE NA 25 MCG TABLET (FP) PO SCH (07:07)
[2023-03-09] MEDS: FUROSEMIDE 40 MG/4 ML INJECTABLE VIAL IVPUSH SCH ×2 (07:07→14:32)
[2023-03-09 07:50] LABS: HEMATOCRIT 39.1 % (32.4-45.2); HEMOGLOBIN 11.9 GM/dL (10.7-15.3); MCH 22.4 pg (25.7-33.7); MCHC 30.4 g/dl (32.0-36.0); MEAN CELL VOLUME 73.8 fl (80-96); MEAN PLT VOLUME 8.7 fl (7.5-11.1); PLATELET COUNT 287 10^3/uL (134-434); RBC 5.29 M/mm3 (3.60-5.2); RDW 19.1 % (11.6-15.6); WHITE BLOOD COUNT 6.4 K/mm3 (4.0-10.0)
[2023-03-09 07:56] LABS: POTASSIUM 4.5 mmol/L (3.5-5.1)
[2023-03-09 08:01] LABS: CALCIUM 9.8 mg/dL (8.5-10.1)
[2023-03-09 08:02] LABS: BLOOD UREA NITROGEN 36.9 mg/dL (7-18); MAGNESIUM 2.1 mg/dL (1.8-2.4)
[2023-03-09 08:06] LABS: BILIRUBIN,TOTAL 1.5 mg/dL (0.2-1); TOT PROT 7.2 g/dl (6.4-8.2)
[2023-03-09] MEDS: IPRATROPIUM BR 0.02% 0.5 MG/2.5 ML VIAL.NEB. NEB SCH ×5 (09:00→22:40)
[2023-03-09] MEDS: SPIRONOLACTONE 25 MG TABLET PO SCH (10:48)
[2023-03-09] MEDS: AMIODARONE HCL 200 MG TABLET PO SCH (10:48)
[2023-03-09] MEDS: predniSONE 20 MG TABLET (UD) PO SCH (10:48)
[2023-03-09] MEDS: APIXABAN 2.5 MG TABLET PO SCH ×2 (10:49→22:05)
[2023-03-09] MEDS: CITALOPRAM HYDROBROMIDE 20 MG TABLET PO SCH (10:49)
[2023-03-09] MEDS: PANTOPRAZOLE 40 MG TABLET PO SCH (10:49)
[2023-03-09] MEDS: POLYETHYLENE GLYCOL (HEALTHYLAX) 3350 17 GM PACKET PO SCH ×3 (10:50→22:05)
[2023-03-09] MEDS: BUDESONIDE/FORMETEROL FUMARATE 160/4.5 mcg INHALER IH SCH ×2 (10:53→22:04)
[2023-03-10] MEDS: METOPROLOL TARTRATE 50 MG TABLET (FP) PO SCH ×3 (05:47→21:49)
[2023-03-10] MEDS: LEVOTHYROXINE NA 25 MCG TABLET (FP) PO SCH ×2 (05:48→06:46)
[2023-03-10] MEDS: FUROSEMIDE 40 MG/4 ML INJECTABLE VIAL IVPUSH SCH ×2 (05:48→15:38)
[2023-03-10 07:06] LABS: HEMATOCRIT 38.4 % (32.4-45.2); HEMOGLOBIN 11.9 GM/dL (10.7-15.3); MCH 22.7 pg (25.7-33.7); MCHC 30.9 g/dl (32.0-36.0); MEAN CELL VOLUME 73.3 fl (80-96); MEAN PLT VOLUME 8.3 fl (7.5-11.1); PLATELET COUNT 303 10^3/uL (134-434); RBC 5.25 M/mm3 (3.60-5.2); RDW 18.8 % (11.6-15.6)
[2023-03-10] MEDS: IPRATROPIUM BR 0.02% 0.5 MG/2.5 ML VIAL.NEB. NEB SCH ×4 (07:16→20:28)
[2023-03-10 07:34] LABS: POTASSIUM 3.9 mmol/L (3.5-5.1)
[2023-03-10 07:40] LABS: ALBUMIN 2.9 g/dl (3.4-5.0); BLOOD UREA NITROGEN 36.9 mg/dL (7-18); CALCIUM 9.4 mg/dL (8.5-10.1)
[2023-03-10 07:42] LABS: CREATININE 1.1 mg/dL (0.55-1.3)
[2023-03-10 07:43] LABS: PHOSPHOROUS 3.1 mg/dL (2.5-4.9)
[2023-03-10 07:44] LABS: BILIRUBIN,TOTAL 1.4 mg/dL (0.2-1); TOT PROT 7.4 g/dl (6.4-8.2)
[2023-03-10 07:52] LABS: MAGNESIUM 1.4 mg/dL (1.8-2.4)
[2023-03-10] MEDS: MAGNESIUM 2GM/50ML STERILE WATER IVPB IVPB SCH ×2 (09:54→14:51)
[2023-03-10] MEDS: predniSONE 20 MG TABLET (UD) PO SCH (10:58)
[2023-03-10] MEDS: CITALOPRAM HYDROBROMIDE 20 MG TABLET PO SCH (10:58)
[2023-03-10] MEDS: SPIRONOLACTONE 25 MG TABLET PO SCH (10:59)
[2023-03-10] MEDS: APIXABAN 2.5 MG TABLET PO SCH ×2 (10:59→21:49)
[2023-03-10] MEDS: AMIODARONE HCL 200 MG TABLET PO SCH (10:59)
[2023-03-10] MEDS: POLYETHYLENE GLYCOL (HEALTHYLAX) 3350 17 GM PACKET PO SCH ×2 (11:00→21:50)
[2023-03-10] MEDS: PANTOPRAZOLE 40 MG TABLET PO SCH (11:00)
[2023-03-10] MEDS: BUDESONIDE/FORMETEROL FUMARATE 160/4.5 mcg INHALER IH SCH ×2 (11:00→21:48)
[2023-03-10] MEDS ORDERED: MAGNESIUM SULFATE IN WATER 2 GM/50 ML IVPB IVPB ONE (15:00)
[2023-03-10] MEDS ORDERED: ALBUTEROL SO4 2.5/IPRATROPIUM 0.5 INH SOL 3 ML VIAL.NEB. NEB ONE (18:43)
[2023-03-11] MEDS: FUROSEMIDE 40 MG/4 ML INJECTABLE VIAL IVPUSH SCH ×2 (05:52→14:07)
[2023-03-11] MEDS: METOPROLOL TARTRATE 50 MG TABLET (FP) PO SCH ×3 (05:55→22:33)
[2023-03-11] MEDS: LEVOTHYROXINE NA 25 MCG TABLET (FP) PO SCH (06:04)
[2023-03-11 07:12] LABS: HEMATOCRIT 36.6 % (32.4-45.2); HEMOGLOBIN 11.4 GM/dL (10.7-15.3); MCH 22.9 pg (25.7-33.7); MCHC 31.2 g/dl (32.0-36.0); MEAN CELL VOLUME 73.4 fl (80-96); MEAN PLT VOLUME 8.5 fl (7.5-11.1); PLATELET COUNT 286 10^3/uL (134-434); RBC 4.98 M/mm3 (3.60-5.2); RDW 18.8 % (11.6-15.6); WHITE BLOOD COUNT 7.6 K/mm3 (4.0-10.0)
[2023-03-11] MEDS: IPRATROPIUM BR 0.02% 0.5 MG/2.5 ML VIAL.NEB. NEB SCH ×2 (07:22→11:35)
[2023-03-11 07:32] LABS: POTASSIUM 4.1 mmol/L (3.5-5.1)
[2023-03-11 07:51] LABS: CALCIUM 9.9 mg/dL (8.5-10.1); MAGNESIUM 2.6 mg/dL (1.8-2.4)
[2023-03-11 07:54] LABS: CREATININE 1.1 mg/dL (0.55-1.3)
[2023-03-11 07:56] LABS: BILIRUBIN,TOTAL 1.2 mg/dL (0.2-1); TOT PROT 7.2 g/dl (6.4-8.2)
[2023-03-11] MEDS: predniSONE 20 MG TABLET (UD) PO SCH (09:16)
[2023-03-11] MEDS: CITALOPRAM HYDROBROMIDE 20 MG TABLET PO SCH (09:16)
[2023-03-11] MEDS: AMIODARONE HCL 200 MG TABLET PO SCH (09:19)
[2023-03-11] MEDS: PANTOPRAZOLE 40 MG TABLET PO SCH (09:19)
[2023-03-11] MEDS: SPIRONOLACTONE 25 MG TABLET PO SCH (09:19)
[2023-03-11] MEDS: POLYETHYLENE GLYCOL (HEALTHYLAX) 3350 17 GM PACKET PO SCH ×2 (09:19→22:33)
[2023-03-11] MEDS: APIXABAN 2.5 MG TABLET PO SCH ×2 (09:19→22:33)
[2023-03-11] MEDS: BUDESONIDE/FORMETEROL FUMARATE 160/4.5 mcg INHALER IH SCH ×2 (09:20→22:33)
[2023-03-12] MEDS: METOPROLOL TARTRATE 50 MG TABLET (FP) PO SCH ×3 (06:45→21:32)
[2023-03-12] MEDS: FUROSEMIDE 40 MG/4 ML INJECTABLE VIAL IVPUSH SCH ×2 (06:45→14:42)
[2023-03-12] MEDS: LEVOTHYROXINE NA 25 MCG TABLET (FP) PO SCH (06:45)
[2023-03-12 07:48] LABS: HEMATOCRIT 37.2 % (32.4-45.2); HEMOGLOBIN 11.2 GM/dL (10.7-15.3); MCH 22.1 pg (25.7-33.7); MCHC 30.1 g/dl (32.0-36.0); MEAN CELL VOLUME 73.6 fl (80-96); MEAN PLT VOLUME 8.9 fl (7.5-11.1); PLATELET COUNT 286 10^3/uL (134-434); RBC 5.05 M/mm3 (3.60-5.2); RDW 19.4 % (11.6-15.6); WHITE BLOOD COUNT 7.7 K/mm3 (4.0-10.0)
[2023-03-12 08:08] LABS: POTASSIUM 4.3 mmol/L (3.5-5.1)
[2023-03-12 08:12] LABS: ALBUMIN 2.6 g/dl (3.4-5.0); CALCIUM 9.4 mg/dL (8.5-10.1)
[2023-03-12 08:16] LABS: CREATININE 1.1 mg/dL (0.55-1.3); PHOSPHOROUS 3.4 mg/dL (2.5-4.9)
[2023-03-12 08:17] LABS: BILIRUBIN,TOTAL 1.3 mg/dL (0.2-1); TOT PROT 6.6 g/dl (6.4-8.2)
[2023-03-12] MEDS: SPIRONOLACTONE 25 MG TABLET PO SCH (09:14)
[2023-03-12] MEDS: predniSONE 20 MG TABLET (UD) PO SCH (09:14)
[2023-03-12] MEDS: APIXABAN 2.5 MG TABLET PO SCH ×2 (09:14→21:32)
[2023-03-12] MEDS: PANTOPRAZOLE 40 MG TABLET PO SCH (09:14)
[2023-03-12] MEDS: CITALOPRAM HYDROBROMIDE 20 MG TABLET PO SCH (09:14)
[2023-03-12] MEDS: AMIODARONE HCL 200 MG TABLET PO SCH (09:14)
[2023-03-12] MEDS: BUDESONIDE/FORMETEROL FUMARATE 160/4.5 mcg INHALER IH SCH ×2 (09:15→21:33)
[2023-03-12] MEDS: POLYETHYLENE GLYCOL (HEALTHYLAX) 3350 17 GM PACKET PO SCH ×2 (09:19→21:33)
[2023-03-12] MEDS ORDERED: FUROSEMIDE 40 MG/4 ML INJECTABLE VIAL IVPUSH ONE (15:01)
[2023-03-13] MEDS: METOPROLOL TARTRATE 50 MG TABLET (FP) PO SCH ×3 (06:17→21:41)
[2023-03-13] MEDS: FUROSEMIDE 40 MG/4 ML INJECTABLE VIAL IVPUSH SCH ×2 (06:18→14:00)
[2023-03-13] MEDS: LEVOTHYROXINE NA 25 MCG TABLET (FP) PO SCH (06:18)
[2023-03-13] MEDS: APIXABAN 2.5 MG TABLET PO SCH ×2 (09:21→21:41)
[2023-03-13] MEDS: predniSONE 20 MG TABLET (UD) PO SCH (09:21)
[2023-03-13] MEDS: CITALOPRAM HYDROBROMIDE 20 MG TABLET PO SCH (09:21)
[2023-03-13] MEDS: AMIODARONE HCL 200 MG TABLET PO SCH (09:21)
[2023-03-13] MEDS: BUDESONIDE/FORMETEROL FUMARATE 160/4.5 mcg INHALER IH SCH ×2 (09:22→21:37)
[2023-03-13] MEDS: PANTOPRAZOLE 40 MG TABLET PO SCH (09:22)
[2023-03-13] MEDS: POLYETHYLENE GLYCOL (HEALTHYLAX) 3350 17 GM PACKET PO SCH ×2 (09:22→21:41)
[2023-03-13] MEDS: SPIRONOLACTONE 25 MG TABLET PO SCH (09:22)
[2023-03-13 10:42] LABS: HEMATOCRIT 41.2 % (32.4-45.2); HEMOGLOBIN 12.3 GM/dL (10.7-15.3); MCH 22.3 pg (25.7-33.7); MCHC 29.9 g/dl (32.0-36.0); MEAN CELL VOLUME 74.6 fl (80-96); MEAN PLT VOLUME 8.6 fl (7.5-11.1); PLATELET COUNT 312 10^3/uL (134-434); RBC 5.52 M/mm3 (3.60-5.2); WHITE BLOOD COUNT 7.3 K/mm3 (4.0-10.0)
[2023-03-13 10:56] LABS: POTASSIUM 4.1 mmol/L (3.5-5.1)
[2023-03-13 10:59] LABS: ALBUMIN 2.9 g/dl (3.4-5.0); BLOOD UREA NITROGEN 36.7 mg/dL (7-18); CALCIUM 9.8 mg/dL (8.5-10.1)
[2023-03-13 11:03] LABS: TOT PROT 7.3 g/dl (6.4-8.2)
[2023-03-13 11:04] LABS: BILIRUBIN,TOTAL 1.2 mg/dL (0.2-1)
[2023-03-14] MEDS: FUROSEMIDE 40 MG/4 ML INJECTABLE VIAL IVPUSH SCH ×2 (06:15→13:53)
[2023-03-14] MEDS: METOPROLOL TARTRATE 50 MG TABLET (FP) PO SCH ×3 (06:15→21:34)
[2023-03-14] MEDS: LEVOTHYROXINE NA 25 MCG TABLET (FP) PO SCH (06:16)
[2023-03-14 07:25] LABS: POTASSIUM 4.5 mmol/L (3.5-5.1)
[2023-03-14 07:28] LABS: HEMATOCRIT 40.4 % (32.4-45.2); HEMOGLOBIN 12.5 GM/dL (10.7-15.3); MCH 22.9 pg (25.7-33.7); MCHC 30.9 g/dl (32.0-36.0); MEAN CELL VOLUME 74.1 fl (80-96); MEAN PLT VOLUME 8.9 fl (7.5-11.1); PLATELET COUNT 351 10^3/uL (134-434); RBC 5.45 M/mm3 (3.60-5.2); RDW 19.4 % (11.6-15.6); WHITE BLOOD COUNT 9.4 K/mm3 (4.0-10.0)
[2023-03-14 07:36] LABS: ALBUMIN 2.9 g/dl (3.4-5.0); BLOOD UREA NITROGEN 37.4 mg/dL (7-18); CREATININE 1.1 mg/dL (0.55-1.3); MAGNESIUM 2.1 mg/dL (1.8-2.4)
[2023-03-14 07:37] LABS: TOT PROT 7.4 g/dl (6.4-8.2)
[2023-03-14 07:39] LABS: CALCIUM 9.9 mg/dL (8.5-10.1)
[2023-03-14] MEDS: PANTOPRAZOLE 40 MG TABLET PO SCH (10:18)
[2023-03-14] MEDS: CITALOPRAM HYDROBROMIDE 20 MG TABLET PO SCH (10:19)
[2023-03-14] MEDS: AMIODARONE HCL 200 MG TABLET PO SCH (10:19)
[2023-03-14] MEDS: BUDESONIDE/FORMETEROL FUMARATE 160/4.5 mcg INHALER IH SCH ×2 (10:19→21:36)
[2023-03-14] MEDS: SPIRONOLACTONE 25 MG TABLET PO SCH (10:19)
[2023-03-14] MEDS: APIXABAN 2.5 MG TABLET PO SCH ×2 (10:19→21:34)
[2023-03-14] MEDS: POLYETHYLENE GLYCOL (HEALTHYLAX) 3350 17 GM PACKET PO SCH ×2 (10:20→21:37)
[2023-03-15] MEDS: FUROSEMIDE 40 MG/4 ML INJECTABLE VIAL IVPUSH SCH ×2 (06:08→13:01)
[2023-03-15] MEDS: METOPROLOL TARTRATE 50 MG TABLET (FP) PO SCH ×3 (06:08→22:43)
[2023-03-15] MEDS: LEVOTHYROXINE NA 25 MCG TABLET (FP) PO SCH (06:08)
[2023-03-15] MEDS: APIXABAN 2.5 MG TABLET PO SCH ×2 (09:14→22:44)
[2023-03-15] MEDS: POLYETHYLENE GLYCOL (HEALTHYLAX) 3350 17 GM PACKET PO SCH ×2 (09:14→22:44)
[2023-03-15] MEDS: AMIODARONE HCL 200 MG TABLET PO SCH (09:14)
[2023-03-15] MEDS: PANTOPRAZOLE 40 MG TABLET PO SCH (09:14)
[2023-03-15] MEDS: SPIRONOLACTONE 25 MG TABLET PO SCH (09:14)
[2023-03-15] MEDS: CITALOPRAM HYDROBROMIDE 20 MG TABLET PO SCH (09:14)
[2023-03-15] MEDS: BUDESONIDE/FORMETEROL FUMARATE 160/4.5 mcg INHALER IH SCH ×2 (09:15→22:44)
[2023-03-15] MEDS: ALBUTEROL SO4 HFA INHALER IH PRN (22:43)
[2023-03-16] MEDS: FUROSEMIDE 40 MG TABLET (FP) PO SCH ×2 (05:38→13:29)
[2023-03-16] MEDS: METOPROLOL TARTRATE 50 MG TABLET (FP) PO SCH ×3 (05:38→22:16)
[2023-03-16] MEDS: LEVOTHYROXINE NA 25 MCG TABLET (FP) PO SCH (06:14)
[2023-03-16 07:39] LABS: POTASSIUM 3.7 mmol/L (3.5-5.1)
[2023-03-16 07:48] LABS: ALBUMIN 2.4 g/dl (3.4-5.0); BLOOD UREA NITROGEN 34.1 mg/dL (7-18); CALCIUM 8.9 mg/dL (8.5-10.1); MAGNESIUM 2.2 mg/dL (1.8-2.4)
[2023-03-16 07:50] LABS: PHOSPHOROUS 3.1 mg/dL (2.5-4.9)
[2023-03-16 07:51] LABS: CREATININE 1.1 mg/dL (0.55-1.3)
[2023-03-16 07:53] LABS: BILIRUBIN,TOTAL 1.2 mg/dL (0.2-1); TOT PROT 6.1 g/dl (6.4-8.2)
[2023-03-16 08:08] LABS: HEMATOCRIT 38.8 % (32.4-45.2); HEMOGLOBIN 11.8 GM/dL (10.7-15.3); MCH 22.4 pg (25.7-33.7); MCHC 30.5 g/dl (32.0-36.0); MEAN CELL VOLUME 73.4 fl (80-96); MEAN PLT VOLUME 8.6 fl (7.5-11.1); PLATELET COUNT 286 10^3/uL (134-434); RBC 5.28 M/mm3 (3.60-5.2); RDW 19.4 % (11.6-15.6); WHITE BLOOD COUNT 7.2 K/mm3 (4.0-10.0)
[2023-03-16] MEDS: APIXABAN 2.5 MG TABLET PO SCH ×2 (10:13→22:16)
[2023-03-16] MEDS: CITALOPRAM HYDROBROMIDE 20 MG TABLET PO SCH (10:13)
[2023-03-16] MEDS: POLYETHYLENE GLYCOL (HEALTHYLAX) 3350 17 GM PACKET PO SCH ×2 (10:13→22:16)
[2023-03-16] MEDS: AMIODARONE HCL 200 MG TABLET PO SCH (10:13)
[2023-03-16] MEDS: PANTOPRAZOLE 40 MG TABLET PO SCH (10:14)
[2023-03-16] MEDS: BUDESONIDE/FORMETEROL FUMARATE 160/4.5 mcg INHALER IH SCH ×2 (10:14→22:18)
[2023-03-16] MEDS: SPIRONOLACTONE 25 MG TABLET PO SCH (10:14)
[2023-03-16] MEDS ORDERED: POTASSIUM CHLORIDE ORAL LIQUID 20 MEQ/15 ML PO ONE (15:03)
[2023-03-17] MEDS: METOPROLOL TARTRATE 50 MG TABLET (FP) PO SCH ×2 (05:52→14:58)
[2023-03-17] MEDS: LEVOTHYROXINE NA 25 MCG TABLET (FP) PO SCH ×2 (05:52→06:01)
[2023-03-17] MEDS: FUROSEMIDE 40 MG TABLET (FP) PO SCH ×2 (05:52→14:58)
[2023-03-17 07:34] LABS: BASO % 0.3 % (0-2.0); EOS % 0.7 % (0-4.5); HEMATOCRIT 38.2 % (32.4-45.2); LYMPH % 9.6 % (8-40); MCHC 31.3 g/dl (32.0-36.0); MEAN CELL VOLUME 73.5 fl (80-96); MEAN PLT VOLUME 8.5 fl (7.5-11.1); MONO % 10.4 % (3.8-10.2); PLATELET COUNT 279 10^3/uL (134-434); RDW 19.1 % (11.6-15.6); WHITE BLOOD COUNT 6.7 K/mm3 (4.0-10.0)
[2023-03-17 08:01] LABS: CALCIUM 8.9 mg/dL (8.5-10.1)
[2023-03-17 08:02] LABS: ALBUMIN 2.5 g/dl (3.4-5.0); BLOOD UREA NITROGEN 27.4 mg/dL (7-18); MAGNESIUM 2.3 mg/dL (1.8-2.4)
[2023-03-17 08:05] LABS: CREATININE 1.1 mg/dL (0.55-1.3); PHOSPHOROUS 2.9 mg/dL (2.5-4.9)
[2023-03-17 08:06] LABS: BILIRUBIN,TOTAL 1.6 mg/dL (0.2-1); TOT PROT 6.5 g/dl (6.4-8.2)
[2023-03-17] MEDS: AMIODARONE HCL 200 MG TABLET PO SCH (10:11)
[2023-03-17] MEDS: PANTOPRAZOLE 40 MG TABLET PO SCH (10:12)
[2023-03-17] MEDS: APIXABAN 2.5 MG TABLET PO SCH (10:12)
[2023-03-17] MEDS: CITALOPRAM HYDROBROMIDE 20 MG TABLET PO SCH (10:12)
[2023-03-17] MEDS: POLYETHYLENE GLYCOL (HEALTHYLAX) 3350 17 GM PACKET PO SCH (10:12)
[2023-03-17] MEDS: BUDESONIDE/FORMETEROL FUMARATE 160/4.5 mcg INHALER IH SCH (10:12)
[2023-03-17] MEDS: SPIRONOLACTONE 25 MG TABLET PO SCH (10:13)
[2023-03-17 18:21] VITALS: RESP 18
[2023-03-17 20:36] VITALS: BP 114/57; PULSE 90; TEMP 97.8
== END 2023-03-17 20:42 | disposition home health service (06) | DRG 291 ==
LOC: JER 11:19 → JERBED 12:36 → J4W 03-04 15:51 → OBSVTOIN 03-07 08:26
PROVIDERS: ADMIT Internal Medicine; ATTEND Internal Medicine
DX: I13.0 Hypertensive heart and chronic kidney disease with heart failure and stage 1 through stage 4 chronic kidney disease, or unspecified chronic kidney disease (principal); I50.33 Acute on chronic diastolic (congestive) heart failure; J96.21 Acute and chronic respiratory failure with hypoxia; J44.1 Chronic obstructive pulmonary disease with (acute) exacerbation; I31.39 Other pericardial effusion (noninflammatory); K59.00 Constipation, unspecified; I48.91 Unspecified atrial fibrillation; D50.9 Iron deficiency anemia, unspecified; E78.5 Hyperlipidemia, unspecified; E03.9 Hypothyroidism, unspecified; R79.89 Other specified abnormal findings of blood chemistry; N63.20 Unspecified lump in the left breast, unspecified quadrant; N18.30 Chronic kidney disease, stage 3 unspecified; R74.01 Elevation of levels of liver transaminase levels
CPT/HCPCS: 0241U-QW; 36415; 71045-TC-FY; 74176-TC; 80048; 80053; 81003; 82248; 83036; 83735; 83880; 84100; 84484; 85025; 85027; 85610; 85730; 87086; 93005; 93010; 93306-TC; 93970-TC; 94640; 94660; 97116-GP; 97162-GP; 99291; G0378